=== PATIENT | male | born 1990 | race Caucasian/White ===

== ENCOUNTER → 2020-10-18 10:18 | Outpatient (CLI) | payer OTHER, SELFPAY ==
[2020-10-18 12:55] LABS: Absolute Lymphocyte Count 1.66 X10^3/uL (0.83-4.51); Absolute Neutrophil Count 2.9 X10^3/uL (2.0-7.7); Basophil# 0.03 X10^3/uL; Basophil% 0.6 % (0-1); Eosinophil# 0.09 X10^3/uL; Eosinophils% 1.8 % (0-5); Hematocrit 47.5 % (40-54); Hemoglobin 16.1 g/dL (13.0-16.5); Lymphocyte # 1.66 X10^3/ul (0.83-4.51); Lymphocyte % 32.8 % (19-41); Mean Corp Hgb Conc 33.9 g/dL (32-36); Mean Corpuscular Volume 88.6 fL (80-94); Monocyte# 0.35 X10^3/uL; Monocyte% 6.9 % (0-10); NRBC Flagged by Analyzer 0 % (0-5); Neutrophil # 2.91 X10^3/uL (2.7-7.7); Neutrophil % 57.5 % (47-70); Platelet Count 221 K/mm3 (150-450); Red Blood Count 5.36 M/mm3 (4.6-6.2); White Blood Count 5.1 K/mm3 (4.4-11.0)
[2020-10-18 13:02] LABS: Vitamin B12 297 pg/mL (211-911); Vitamin D,25 Hydroxy 20.7 ng/mL
[2020-10-18 13:16] LABS: ALB/GLOB Ratio 1.1 RATIO (0.9-2.4); AST(SGOT) 31 U/L (15-37); Alanine Aminotransfer ALT/SGPT 48 U/L (16-61); Albumin, Serum 4.2 g/dL (3.2-5.0); Alkaline Phosphatase 97 U/L (45-117); Anion Gap 3 (5-15); BUN 17 mg/dL (7-18); BUN/Creat Ratio 15.9 RATIO (10-20); Calcium,Total 9.3 mg/dL (8.5-10.1); Chloride 101 mmol/L (98-107); Cholesterol 220 mg/dL (200); Creatinine, Serum 1.07 mg/dL (0.70-1.30); EST Glomerular Filtration Rate 86 mL/min (>60); Est Glom Filt Rate - Afr Amer 104 mL/min (>60); Globulin 3.9 g/dL (2.2-4.2); Glucose 94 mg/dL (74-106); High Density Lipoprotein 35 mg/dL; Potassium 4.4 mmol/L (3.5-5.1); Protein, Total 8.1 g/dL (6.4-8.2); Sodium Level 135 mmol/L (136-145); T4 Free Direct 0.91 ng/dL (0.76-1.46); Thyroid Stim Hormone (TSH) 1.27 uIU/mL (0.358-3.74); Triglycerides 261 mg/dL; Very Low Density Lipoprotein 52 mg/dL (5-40)
== END ==
PROVIDERS: PCP Family Medicine; Referring Provider Family Medicine; Visit Provider Family Medicine
DX: R53.83 Other fatigue (principal); Z82.49 Family history of ischemic heart disease and other diseases of the circulatory system
CPT/HCPCS: 36415; 80053; 80061; 82306; 82607; 84439; 84443; 85025

== ENCOUNTER 2021-02-08 09:43 | Emergency (ER) | payer OTHER, SELFPAY ==
[2021-02-08 09:44] VITALS: BP 161/103; PULSE 72; RESP 18; TEMP 36.5; O2SAT 99; BMI 30.2
--- NOTE | 2021-02-08 10:00 | EKG12_ITS ---
Test Reason : Blood Pressure : / mmHG Vent. Rate : 076 BPM Atrial Rate : 076 BPM P-R Int : 140 ms QRS Dur : 102 ms QT Int : 380 ms P-R-T Axes : 022 080 046 degrees QTc Int : 427 ms Normal sinus rhythm Normal ECG Confirmed by ADELAIDE BAILEY, SHAYNA ([id number]), telegraph editor MIGEL MILLER ([id number]) on 02/13/2021 8:33:40 AM Referred By: Confirmed By:SHAYNA BRYSON MD
--- NOTE | 2021-02-08 10:00 | RAD_ITS ---
STUDY: X-RAY CHEST REASON FOR EXAM: Male, 30 years old. Chest pain and chest pressure. TECHNIQUE: Single AP portable view of the chest. COMPARISON: None. FINDINGS: EKG electrodes are seen. The lungs are clear and expanded. There is no demonstrated pleural abnormality. Normal size heart. Normal mediastinum and latoya. Normal visualized pulmonary arteries. Normal visualized aortic arch and descending thoracic aorta. Normal visualized thoracic spine. Normal visualized ribs, clavicles, and shoulders. There is no demonstrated abnormality of the visualized soft tissue structures of the upper abdomen. RAD/Chest 1 View (Portable) IMPRESSION: Normal x-ray examination of the chest. Electronically Signed: Dimitri Murcia MD at 10:38 EDT , Service support ,
--- NOTE | 2021-02-08 10:01 | EDS_ITS ---
HPI History of Present Illness Chief Complaint: Chest Pain Informant: patient Narrative Narrative: 30-year-old male presents the emergency room with chest tightness. Patient states that he is in the process of being evaluated for sleep apnea. He states that last night he tried to consciously breathe through his nose. This morning when he woke he felt a tightness in his chest. He states it makes him feel somewhat dyspneic. It was not going away when he was trying to go to work and it concerned him so he wanted to be evaluated. He notes his father has had extensive heart problems but after the age of 55. Patient is a non-smoker. He has no significant medical problems. PFSH PFSH no medical history Home Medications NK 02/08/21 [History Last Taken Unknown] Allergy/AdvReac Type Severity Reaction Status Date / Time No Known Allergies Allergy Verified 02/08/21 10:10 no surgical history Social History (Updated 02/08/21 @ 10:[address] Clay Snow, DO) Smoking Status: Never smoker substance use type: does not use ROS ROS ED Constitutional Constitutional ED: Denies chills or weight loss Eyes Eyes: Denies change in vision or diplopia ENT ENT ED: Denies ear pain, rhinorrhea or sore throat Cardiovascular Cardiovascular: Reports chest pain; Denies orthopnea, palpitations or racing heartbeat Respiratory/Chest Respiratory/Chest: Reports dyspnea; Denies cough or orthopnea Gastrointestinal Gastrointestinal: Denies abdominal pain, diarrhea, nausea or vomiting Genitourinary Genitourinary ED: Denies dysuria, hematuria or urinary frequency Musculoskeletal Musculoskeletal: Denies arthralgias or myalgias Integumentary Denies abscess or rash Neurologic Neurologic: Denies headache(s) or weakness Psychiatric Psychiatric: Denies anxiety, depression, suicidal ideation or suicidal thoughts Endocrine Endocrinology: Denies polydipsia, polyphagia or polyuria Allergic/Immunologic Allergic/Immunologic ED: Denies mouth swelling, tongue swelling or urticaria EXAM Physical Exam Const Vital Signs: 02/08/21 09:44 02/08/21 10:07 Temperature 97.7 F L Temperature Source Oral Pulse Rate 72 Respiratory Rate 18 Respiratory Effort Normal Non-Labored Respiratory Pattern Normal Blood Pressure 161/103 H Blood Pressure Mean 122 Pulse Ox 99 Oxygen Delivery Method Room Air Positive well nourished and well developed General Appearance ED: well developed HEENT Reports normocephalic, head/scalp atraumatic and moist mucous membranes Eyes PERRL and EOMs intact bilaterally Neck no lymphadenopathy, supple and no JVD Resp normal respiratory effort and clear to auscultation bilaterally Cardio regular rate, regular rhythm and no murmurs GI normal to inspection, nondistended, normoactive bowel sounds and non-tender Palpation: soft Back/Spine no CVA tenderness and normal ROM Extremity normal to inspection General Extremety ED: Negative for edema General Extremity: Negative for edema Neuro oriented x3 and CN's II-XII intact bilaterally Sensorium / Orientation: alert Motor Exam: strength 5/5 throughout Psych mental status grossly normal Mood & Affect: Negative for depressed or tearful Skin no rashes or lesions noted and no wounds Heart Score History: Slightly/Non-Suspicious ECG: Normal Age: </= 45 years Risk Factors: No Risk Factors Troponin: </= Normal Limit Score: 0 MDM MDM MDM Narrative Medical decision making narrative: My interpretation of the plain film of the chest x-ray is no acute process. Patient's white count 6.2. Troponin 29. D- dimer elevated 0.63. Therefore a CTA of the chest was obtained. This demonstrated no pulmonary embolism. Patient I believe can be discharged home. Following up with primary care return if worsening or concerns. Lab Data Attestation: I reviewed the patient's lab results. Labs: Laboratory Results - last 24 hr 02/08/21 02/08/21 02/08/21 09:50 09:50 10:09 WBC 6.2 RBC 5.34 Hgb 16.3 Hct 47.1 MCV 88.2 MCH 30.5 MCHC 34.6 RDW Std Deviation 39.6 RDW Coeff of Juliano 12.3 Plt Count 225 MPV 9.3 Immature Gran % (Auto) 0.500 Neut % (Auto) 63.6 Lymph % (Auto) 26.6 [place] % (Auto) 7.4 Eos % (Auto) 1.4 Baso % (Auto) 0.5 Absolute Neuts (auto) 4.0 Absolute Lymphs (auto) 1.66 Nucleated RBC % 0 D-Dimer Quant (PE/DVT) 0.63 H* Sodium 139 Potassium 4.2 Chloride 103 Carbon Dioxide 31.0 Anion Gap 5 BUN 14 Creatinine 1.12 Estim Creat Clear Calc 118.40 Est GFR (MDRD) Af Amer 99 Est GFR (MDRD) Non-Af 82 BUN/Creatinine Ratio 12.5 Glucose 104 Calcium 9.1 Troponin I High Sens 29 Radiography Diagnostic Testing: Radiology Impression Chest X-Ray 02/08/21 10:00 IMPRESSION: Normal x-ray examination of the chest. Electronically Signed: Dimitri Murcia MD at 10:38 EDT , Service support , Chest CTA 02/08/21 10:45 IMPRESSION: Normal CTA chest examination, without a demonstrated pulmonary embolism or arterial dissection. Electronically Signed: Dimitri Murcia MD at 11:24 EDT , Service support , EKG Initial EKG: Attestation: I personally reviewed and interpreted this EKG as follows: Comments: Normal sinus rhythm at a rate of 76 bpm. No concerning features of ACS or ectopy noted. Discharge Plan Triage Chief Complaint: Chest Pain ED Provider: Clay Snow Dx/Rx/DC Orders Clinical Impression: Chest pain Instructions: ED Chest Pain, Noncardiac Prescriptions: No Action NK RF: 0 Primary Care Provider: Urbano Oswald Referrals: Urbano Oswald MD [Primary Care Provider] - 1 Week Disposition Disposition: Home, Self Care
[2021-02-08 10:23] LABS: Absolute Lymphocyte Count 1.66 X10^3/uL (0.83-4.51); Basophil# 0.03 X10^3/uL; Basophil% 0.5 % (0-1); Eosinophil# 0.09 X10^3/uL; Eosinophils% 1.4 % (0-5); Hematocrit 47.1 % (40-54); Hemoglobin 16.3 g/dL (13.0-16.5); Lymphocyte # 1.66 X10^3/ul (0.83-4.51); Lymphocyte % 26.6 % (19-41); Mean Corp Hgb Conc 34.6 g/dL (32-36); Mean Corpuscular Hgb 30.5 pg (27.0-32.0); Mean Corpuscular Volume 88.2 fL (80-94); Mean Platelet Vol. 9.3 fl (6.2-12.0); Monocyte# 0.46 X10^3/uL; Monocyte% 7.4 % (0-10); NRBC Flagged by Analyzer 0 % (0-5); Neutrophil # 3.96 X10^3/uL (2.7-7.7); Neutrophil % 63.6 % (47-70); Platelet Count 225 K/mm3 (150-450); RBC Distribution Width CV 12.3 % (11.6-14.6); RBC Distribution Width SD 39.6 fl (35.1-43.9); Red Blood Count 5.34 M/mm3 (4.6-6.2); White Blood Count 6.2 K/mm3 (4.4-11.0)
[2021-02-08 10:38] LABS: D-Dimer Quantitative (DVT/PE) 0.63 FEU/ug/m (0.27-0.49)
[2021-02-08 10:41] LABS: Anion Gap 5 (5-15); BUN 14 mg/dL (7-18); BUN/Creat Ratio 12.5 RATIO (10-20); Calcium,Total 9.1 mg/dL (8.5-10.1); Chloride 103 mmol/L (98-107); Creatinine, Serum 1.12 mg/dL (0.70-1.30); EST Glomerular Filtration Rate 82 mL/min (>60); Est Glom Filt Rate - Afr Amer 99 mL/min (>60); Glucose 104 mg/dL (74-106); Potassium 4.2 mmol/L (3.5-5.1); Sodium Level 139 mmol/L (136-145); Troponin-I HS 29 pg/mL (3.0-78.0)
--- NOTE | 2021-02-08 10:45 | CT_ITS ---
STUDY: CTA CHEST REASON FOR EXAM: Male, 30 years old. Pulmonary embolism. Chest tightness. Shortness of breath and elevated d-dimer. RADIATION DOSAGE (If Supplied By Facility): CTDIvol = ( 14.01 ) mGy, DLP = ( 529.13 ) mGycm TECHNIQUE: The examination was performed with the intravenous administration of IV 100mL Isovue-370. Post-processing of the angiographic images was performed, with multiplanar reformation and 3D reconstruction. Individualized dose optimization techniques were used for this CT. COMPARISON: None. FINDINGS: Normal enhancement of the main pulmonary artery and right and left pulmonary arteries. Normal enhancement of the bilateral peripheral pulmonary arteries. There is no demonstrated pulmonary embolism. Normal thoracic aorta and visualized great vessels. There is no demonstrated aortic dissection. Normal heart and pericardium. Normal mediastinum. Normal hilar regions. Normal visualized trachea and bronchi. The lungs are well expanded. Normal pulmonary parenchyma. Normal pleura. Normal chest wall structures. Normal osseous structures. Normal visualized upper abdomen. CT/CTA Chest W/WO Contrast IMPRESSION: Normal CTA chest examination, without a demonstrated pulmonary embolism or arterial dissection. Electronically Signed: Dimitri Murcia MD at 11:24 EDT , Service support ,
[2021-02-08 11:55] VITALS: BP 139/92; PULSE 67; RESP 16; O2SAT 97
== END 2021-02-08 11:56 | disposition home or self-care (01) ==
LOC: ED 11:50
PROVIDERS: Emergency Provider Emergency Medicine; PCP Family Medicine
DX: R07.89 Other chest pain (principal); R06.00 Dyspnea, unspecified
CPT/HCPCS: 71045; 71275; 80048; 84484; 85025; 85379; 93005; 99284; A4216

== ENCOUNTER → 2021-05-09 15:35 | Outpatient (CLI) | payer OTHER, SELFPAY ==
[2021-05-09 17:52] LABS: Amphetamine Urine VISTA NEGATIVE (<1000 ng/mL); Barbiturate Urine VISTA NEGATIVE (< 200 ng/mL); Benzodiazepine Urine VISTA NEGATIVE (< 200 ng/mL); Cocaine Urine VISTA NEGATIVE (< 300 ng/mL); Ecstacy Urine VISTA NEGATIVE (< 500 ng/mL); Methadone Urine VISTA NEGATIVE (< 300 ng/mL); PCP Urine VISTA NEGATIVE (< 25 ng/mL); THC Urine VISTA NEGATIVE (< 50 ng/mL); Vista UDS pH Range 6
== END ==
PROVIDERS: PCP Family Medicine; Referring Provider Internal Medicine Pulmonary Disease; Visit Provider Internal Medicine Pulmonary Disease
DX: G47.10 Hypersomnia, unspecified (principal)
CPT/HCPCS: 80307

== ENCOUNTER → 2022-09-18 | Outpatient (CLI) | payer BC, SELFPAY ==
--- NOTE | 2022-09-18 09:06 | RAD_ITS ---
STUDY: X-RAY - LEFT ANKLE REASON FOR EXAM: Male, 32 years old. Pain TECHNIQUE: 3 view(s) of the ankle. COMPARISON: March 20, 2017 left ankle x-ray FINDINGS: Normal visualized distal tibia .Normal medial .Normal tibiotalar articulation and ankle mortise. Normal visualized talus and calcaneus. The visualized subtalar, talonavicular, calcaneocuboid and tarsal articulations are normal. There is visualized degenerative change at the level of the talonavicular joint. Stable since prior study. There is a persistent bulbous appearance of the lateral malleolus with underlying stable appearing bony erosion measuring up to 7.6 mm. There is a soft tissue mass measuring approximately 3.3 x 1.7 cm. RAD/Ankle min 3 Views IMPRESSION: Relatively stable bulbous appearance of the lateral malleolus that is highly suggestive of probable underlying lateral malleolus bursitis with bony changes. Consider follow-up studies such as MRI if clinically appropriate. There is no visualized fracture. Electronically Signed: Breonna Villatoro MD at 22:39 EDT ,
== END | disposition home or self-care (01) ==
LOC: MTRAD 09:06
PROVIDERS: PCP Family Medicine; Referring Provider Family Medicine; Visit Provider Family Medicine
DX: M25.579 Pain in unspecified ankle and joints of unspecified foot (principal)
CPT/HCPCS: 73610

== ENCOUNTER → 2022-10-10 | Outpatient (CLI) | payer BC, SELFPAY ==
--- NOTE | 2022-10-10 09:15 | MRI_ITS ---
STUDY: MRI LEFT ANKLE WITHOUT CONTRAST REASON FOR EXAM: Male, 32 years old. Lateral left ankle pain. No injury. TECHNIQUE: Standardized fat and water weighted pulse sequences were obtained in all 3 orthogonal planes. COMPARISON: X-rays of left ankle dated September 18, 2022. FINDINGS: Septated ganglion cyst adjacent to the fibular tip measuring 19 mm x 8 mm x 19 mm (axial series 4 images 13-19, coronal series 8 images 19-27, sagittal series 7 images 21-26). Normal posterior tibialis tendon. Normal flexor digitorum longus tendon. Normal flexor hallucis longus tendon. Normal peroneus longus and brevis tendons. Normal tibialis anterior tendon. Normal extensor hallucis longus tendon. Normal extensor digitorum longus tendons. Normal Achilles tendon and teno-osseous insertion. Normal plantar fascia. Normal plantar calcaneal tubercles. Normal intrinsic muscles of the rearfoot. Normal distal tibiofibular syndesmotic ligamentous complex. Normal lateral ligamentous complex. Normal subtalar ligaments and sinus tarsi. Normal deltoid ligamentous complexes. Normal plantar calcaneonavicular (spring) ligament. Bone marrow edema in the distal fibula (coronal series 8 images 20-25). Normal tibiotalar articulation. Normal talar dome. Normal subtalar articulations. Normal talonavicular articulation. Normal calcaneocuboid articulation. Normal navicular-cuneiform articulations. MRI/Lower Ext Joint Only (Routine) IMPRESSION: Bone marrow edema in the distal fibula with an adjacent septated ganglion cyst as described. No other abnormality. Electronically Signed: Gerber Rodriguez, at 13:55 EDT ,
== END | disposition home or self-care (01) ==
LOC: MRI 09:02
PROVIDERS: PCP Family Medicine; Referring Provider Family Medicine; Visit Provider Family Medicine
DX: M25.579 Pain in unspecified ankle and joints of unspecified foot (principal)
CPT/HCPCS: 73721

== ENCOUNTER → 2022-10-15 | Outpatient (CLI) | payer BC, SELFPAY ==
[2022-10-15 11:10] LABS: CRYSTALS, BODY FLUID MONOSODIUM URATE; Source- Body Fluid SYNOVIAL
[2022-10-15 11:11] LABS: Body Fluid QC Type(s) BF1Q
[2022-10-16 12:48] LABS: Pathologist Review Reviewed
== END | disposition home or self-care (01) ==
LOC: LABSPEC 10:05
PROVIDERS: PCP Family Medicine; Referring Provider Family Medicine; Visit Provider Family Medicine
DX: M77.50 Other enthesopathy of unspecified foot and ankle (principal)
CPT/HCPCS: 89060

== ENCOUNTER → 2022-11-29 | Outpatient (CLI) | payer BC, SELFPAY ==
[2022-11-29 18:11] LABS: Uric Acid 7.1 mg/dL (3.5-7.2)
== END | disposition home or self-care (01) ==
LOC: MTLAB 14:50
PROVIDERS: PCP Family Medicine; Referring Provider Family Medicine; Visit Provider Family Medicine
DX: M77.50 Other enthesopathy of unspecified foot and ankle (principal); M10.9 Gout, unspecified
CPT/HCPCS: 36415; 84550

== ENCOUNTER → 2023-03-29 | Outpatient (CLI) | payer BC, SELFPAY ==
--- NOTE | 2023-03-29 08:58 | RAD_ITS ---
STUDY: X-RAY - LUMBAR SPINE REASON FOR EXAM: Male, 32 years old. BACK PAIN TECHNIQUE: XR Spine Lumbar 4 Views COMPARISON: None FINDINGS: Normal lumbar lordosis. There is no substantial scoliosis. There is a normal alignment of the vertebrae. Normal vertebral bodies and endplates. Normal disc space heights. The soft tissue structures are unremarkable. RAD/L/S Spine Min 4 Views IMPRESSION: There are no acute findings. Electronically Signed: Ramin Faust MD at 14:36 EDT ,
== END | disposition home or self-care (01) ==
LOC: MTRAD 08:52
PROVIDERS: PCP Family Medicine; Referring Provider Family Medicine; Visit Provider Family Medicine
DX: M54.16 Radiculopathy, lumbar region (principal)
CPT/HCPCS: 72110

== ENCOUNTER 2023-04-17 12:00 | Outpatient (RCR) | payer BC, SELFPAY ==
--- NOTE | 2023-03-26 14:15 | HP.PTEVAL_ITS ---
Patient's Visit Information Visit Information Visit Information: ANGELIQUE SWANN is a 32 year old M referred to Physical Therapy by Dr. Vadim Vaca MD with a diagnosis of lumbago with sciatica, pelvic rotation, tight hip flexor.. Date of Evaluation: 03/26/23 Physical Therapist: Dustin Guillen DPT Visit Plan Frequency: 2x /Week Duration: 4 Weeks Plan: Pt. did not have a + response to extension mobility, he did have a better response with flexion this date. I would like him to initially work on flexion to calm his symptoms down, but eventually work into extension to reduce his derangement. I gave him SKTC and DKTC, and use of towel roll with sitting for HEP. Next visit reassess tolerance extension mobility. If extension provided better response progress with extension at this point. I added mobilizations and soft tissue to interventions in case he needed over pressures to get relief with extension and/or manual therapy to reduced subsequent muscle guarding. Subjective Subjective: Pt. is here today for his initial evaluation with diagnosis of lumbago with sciatica, pelvic rotation, tight hip flexor. Pt. reports having pain for ~1 month now. He has done prednisone and muscle relaxers, with some relief, but not fully. Pt. reports no mech of injury, but seems to have come on abruptly. Pt. reports pain that does down his R leg to calf pretty consistently. Mornings and evening are worst, middle of the day seems to be better. Pt. has been trying some stretches without much relief. He has been working on rotation and HS stretching. 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 He also likes to play basketball but has been unable to do so. He has 2 young kinds under the age of 3 and has difficulty picking them up. Pt. is looking to get approval for MRI as well at this point in time. Pain Lumbar spine: Pain Intensity (Out of 10): 4 Pain Intensity Range: 2 and 8 RLE: Pain Intensity (Out of 10): 4 Pain Intensity Range: 2 and 8 Objective Objective: POSTURE: Pt. has slight flexed posture. Pt. has slight anterior pelvic tilt. PALPATION: Pt. has some hypomobility throughout lumbar spine, hypomobility with spring testing. Pt. did not have any radicular symptoms with trials. NEURO: Pt. has normal sensation in BLEs and normal DTR in BLEs. ROM: LUMBAR SPINE: flexion min loss increase nW, ext mod loss increase NW, SB R nil loss NE, SB left min loss increase NW, rotation nil loss bilat NE. HIP: normal hip ROM bilat without increase in symptoms. He does have some slight tightness in B HS and more tightness in B hip flexor tendons, but symmetrical. MMT: 5/5 strength throughout BLEs. No marked myotomal weakness noted in BLEs. Pt. has a slight reduction in trunk flexion and trunk extension, but minimal. GAIT: Pt. has reduced B arm swing with gait, rigid upper body mobility with gait. STAIRS: fairly normal. Special Tests L/S Slump test left side: Negative L/S Slump test right side: Positive L/S Left Straight Leg Raise: Negative L/S Right Straight Leg Raise: Positive Lumbar Standing: Flexion - Mechanical Response: No effect Lumbar Standing: Flexion - Symptoms During Testing: Increases Lumbar Standing: Flexion - Symptoms After Testing: No worse Lumbar Standing: Extension - Mechanical Response: No effect Lumbar Standing: Extension - Symptoms During Testing: Abolishes Lumbar Standing: Extension - Symptoms After Testing: No worse Lumbar Standing: Right Side Glides - Mechanical Response: No effect Lumbar Standing: Right Side [place] - Symptoms During Testing: No effect Lumbar Standing: Right Side [place] - Symptoms After Testing: No effect Lumbar Standing: Left Side [place] - Mechanical Response: No effect Lumbar Standing: Left Side [place] - Symptoms During Testing: No effect Lumbar Standing: Left Side [place] - Symptoms After Testing: No effect Lumbar Lying: Flexion - Mechanical Response: No effect Lumbar Lying: Flexion - Symptoms During Testing: Decreases Lumbar Lying: Flexion - Symptoms After Testing: Better Comments:: slightly, less calf and HS pain Lumbar Lying: Extension - Mechanical Response: No effect Balance/Special Test Scores Oswestry Low Back Score: 20 Goals Goal 1:: LTG: Pt. to have full lumbar ROM without increase in any lumbar or radicular symptoms. Goal Time Frame: 4-6 Weeks Goal 2:: LTG: Pt. to be able to get in/out of car and drive for 30+ minutes without increase in RLE pain. Goal Time Frame: 4-6 Weeks Goal 3:: LTG: Pt. to have negative R sided slump testing. Goal Time Frame: 4-6 Weeks Goal 4:: LTG: Pt. to be able to play basketball without increase in symptoms. Goal Time Frame: 4-6 Weeks Goal 5:: LTG: Pt. to have improved back oswestry score to less than 10% disability. Goal Time Frame: 4-6 Weeks Rehabilitation Potential Physical Therapy Diagnosis: Pt. has signs and symptoms consistent with lumbago with sciatica, pelvic rotation, tight hip flexor. Pt. would benefit from PT to reduce his low back pain. Pt. presents with discogenic involvement of his lumbar spine, resulting in distal RLE pain. Pt. would benefit from PT to reduce nerve involvement progressing his lumbar ROM, restoring his tolerance to all ADLs and work/recreational activities. Rehabilitation Potential: Excellent Anticipated Interventions Patient/Client Instruction: Educate patient on: Condition, Plan of Care, Risk Factors and Benefits of Fitness Program For the Purpose of:: To facilitate caregiver knowledge, To improve self management, To prevent re-injury, To improve ability to perform tasks related to life management and To improve tolerance to ADL's Therapeutic Exercise to Include: Strength training, Power training, Postural training, Flexibilty training, Passive ROM, Active ROM and Dynamic Lumbar Stabilization For the Purpose of:: To decrease pain, To increase ROM, To improve nutrient delivery to tissue, To increase oxygenation perfusion, To improve ability to per form ADL's, To improve health of tissue, To decrease soft tissue restriction and To increase flexibility/ROM Manual Therapy Techniques to Include: Mobilization and Soft tissue mobilization For the Purpose of:: To decrease pain, To decrease swelling/inflammation, To increase ROM, To improve nutrient delivery to tissue and To increase oxygenation perfusion Text: Thank you for the opportunity to evaluate your patient. For Medicare and Medicare HMO plans, please review the plan of care and approve it. It will need to be FAXED BACK to us at [phone] for Medicare purposes. For Medicare only, by signing this I certify the plan of care. Please let me know if there are questions or concerns regarding this plan of care. Physician Signature: Date:
--- NOTE | 2023-10-01 09:52 | HP.PTDCSUM ---
Discharge Summary D/C summary: It has been my pleasure to treat ANGELIQUE SWANN referred by Dr. Ruddy Vaca MD, with the diagnosis of lumbago with sciatica, pelvic rotation, tight hip flexor. for a total of 4 visit(s). Discharge Date: 04/17/23 Please see the following information for a summary of their discharge status. Subjective Subjective: Pt. reports not much change with PT. Pain Lumbar spine: Pain Intensity (Out of 10): 3 RLE: Pain Intensity (Out of 10): 3 Overall Improvement % Improvement: 15 Objective Objective/Function: ROM: LUMABR SPINE: flexion mod loss increase NW, ext mod loss increase NW, SB min loss NE bilat, rotation min loss NE bilat. PT. has normal HS length and close to normal hip flexor length. MMT: Pt. has normal strength throughout BLEs distally, fairly normal strength with hip flexors slight decrease to 4+/5 mild increase NW bilat. At this point in time he has not had much relief with extension exercises. I would recommend following back up with physician. Pt. consents. Goals Goal 1:: LTG: Pt. to have full lumbar ROM without increase in any lumbar or radicular symptoms. Goal Progress: Not Progressing Goal 2:: LTG: Pt. to be able to get in/out of car and drive for 30+ minutes without increase in RLE pain. Goal Progress: Progressing Goal 3:: LTG: Pt. to have negative R sided slump testing. Goal Progress: Not Progressing Goal 4:: LTG: Pt. to be able to play basketball without increase in symptoms. Goal Progress: Not Progressing Goal 5:: LTG: Pt. to have improved back oswestry score to less than 10% disability. Goal Progress: Progressing Plan Plan: Pt. to be DC ant follow back up with physician. D/C Information Discharge Comments: Pt. was seen in PT for his LBP. Pt. started with extension progression, but did not progress as expected. We tried LE stretching and nerve glides, but did not have a good directional preference. Pt. will be referred back to physician at this point in time. d/c sentence: If there are questions or concerns regarding this patient's physical therapy, please feel free to call me at [phone]. Thank you for the referral of this patient. Sincerely, Dustin L Sipos, DPT Balance/Gait/Functional tests Balance/Special Test Scores Oswestry Low Back Score: 18 Improvement % Improvement: 15
== END 2023-04-17 19:00 | disposition home or self-care (01) ==
LOC: PT 12:00
PROVIDERS: PCP Family Medicine; Referring Provider Family Medicine; Visit Provider Family Medicine
DX: M54.40 Lumbago with sciatica, unspecified side (principal)
CPT/HCPCS: 97110; 97161

== ENCOUNTER → 2023-04-29 | Outpatient (CLI) | payer BC, SELFPAY ==
--- NOTE | 2023-04-29 14:45 | MRI_ITS ---
STUDY: MRI LUMBAR SPINE WITHOUT CONTRAST REASON FOR EXAM: Male, 32 years old. pain TECHNIQUE: Standardized fat and water weighted pulse sequences were obtained in the sagittal and axial planes. COMPARISON: None FINDINGS: T12-L1: Normal endplates. Normal disc height, hydration and morphology. Normal bilateral facet joints. Normal central canal and bilateral lateral recesses. Normal bilateral intervertebral neural foramina. Normal lumbar lordosis. There is no substantial scoliosis. Normal conus medullaris that terminates at T12-L1 L1-2: Normal endplates. Normal disc height, hydration and morphology. Normal bilateral facet joints. Normal central canal and bilateral lateral recesses. Normal bilateral intervertebral neural foramina. L2-3: Normal endplates. Normal disc height, hydration and morphology. Normal bilateral facet joints. Normal central canal and bilateral lateral recesses. Normal bilateral intervertebral neural foramina. L3-4: Normal endplates. Normal disc height, hydration and morphology. Normal bilateral facet joints. Normal central canal and bilateral lateral recesses. Normal bilateral intervertebral neural foramina. L4-5: Normal endplates. Normal disc height, hydration and minor annular bulge. Facet arthropathy and thickening of ligamenta flava.. Normal central canal and bilateral lateral recesses. Moderate bilateral neural foraminal stenosis. L5-S1: Normal endplates. Normal disc height, desiccation mild annular bulge with broad-based right paracentral/posterolateral disc protrusion displacing the descending right S1 nerve root.. Normal facet arthropathy. Mild narrowing of the central canal. Normal bilateral lateral recesses. Moderate bilateral neural foraminal stenosis slightly worse on the right Normal visualized sacral ala. Normal visualized paraspinous soft tissue structures. MRI/Spine Lumbar (Routine) IMPRESSION: No evidence for acute fracture or other significant bony pathology Spinal stenosis at L4-5 and L5-S1 more severe on the right secondary to disc disease and bony hypertrophy Electronically Signed: Fahad Hooker MD at 18:48 EST ,
== END | disposition home or self-care (01) ==
LOC: MRI 14:16
PROVIDERS: PCP Family Medicine; Referring Provider Orthopaedic Surgery; Visit Provider Orthopaedic Surgery
DX: M51.26 Other intervertebral disc displacement, lumbar region (principal)
CPT/HCPCS: 72148

== ENCOUNTER 2024-02-10 09:30 | Outpatient (RCR) | payer BC, SELFPAY ==
--- NOTE | 2023-11-27 10:30 | HP.PTEVAL_ITS ---
Patient's Visit Information Visit Information Visit Information: ANGELIQUE SWANN is a 33 year old M referred to Physical Therapy by Dr. Robbie Macedo MD with a diagnosis of LUMBAR RADICULOPATHY. Date of Evaluation: 11/27/23 Physical Therapist: Bubba Mchugh, PT, Cert MDT, OCS Visit Plan Frequency: 2x /Week Duration: 4 Weeks Plan: PT INTERVENTIONS JOEY EX'S WITH PROGRESSION OF FORCES, MANUAL THERAPY ,PROGRESSION TO DLS AND POSTURAL EX'S Subjective Subjective: This 33 y/o male presents to physical therapy with lumbar lumbar radiculopathy. Patient has had lumbar radiculopathy right leg last Feb 2023. Patient seen DR Vaca recommended PT . Patient was not getting better with PT. Patient pain worse thus had MRI showed HNP L5-S1 . Patient seen DR Macedo tried epidural injection. Seen pain management but referred PT . Patient located calf and hamstrings less lumbar pain. Today mild in calf . Normal activity less pain. Aggravating standing ,bending ,lifting ,sitting. Alleviating lyrica , extension. Denies paresthesia/tingling in foot better, Coughing/sneezing -.Sleeping good. No abnormal night pain. Bowel/bladder -. Patient pain affects QOL and function unable to return to golfing/basketball. Patient goals to have no pain. 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 Right Lower Extremity: Pain Intensity (Out of 10): 4 Pain Intensity Range: 10 Right Back: Pain Intensity (Out of 10): 3 Pain Intensity Range: 10 Objective Objective: POSTURE: WFL ,sitting reduce lordosis PALAPTION: unremarkable NEURO: denies paresthesia/tingling ,reflexes L3-4,L4-5,L5-S1 2/3 MMT: quads/hams 4/5 ,hip flexion 4/5 , ankl3 5/5 FLEXABILITY: min hamstrings LUMBAR ROM : flexion WFL , extension min ,side glides min loss Special Tests L/S Slump test left side: Negative L/S Slump test right side: Negative L/S Left Straight Leg Raise: Negative L/S Right Straight Leg Raise: Negative Lumbar Standing: Flexion - Mechanical Response: No effect Lumbar Standing: Flexion - Symptoms During Testing: Increases Lumbar Standing: Flexion - Symptoms After Testing: Worse Comments:: calf Lumbar Standing: Extension - Mechanical Response: No effect Lumbar Standing: Extension - Symptoms During Testing: Decreases Lumbar Standing: Extension - Symptoms After Testing: Better Comments:: calf Lumbar Standing: Right Side Glides - Mechanical Response: No effect Lumbar Standing: Right Side [place] - Symptoms During Testing: No effect Lumbar Standing: Right Side [place] - Symptoms After Testing: No effect Lumbar Standing: Left Side [place] - Mechanical Response: No effect Lumbar Standing: Left Side [place] - Symptoms During Testing: No effect Lumbar Lying: Flexion - Mechanical Response: No effect Lumbar Lying: Flexion - Symptoms During Testing: Decreases Lumbar Lying: Flexion - Symptoms After Testing: Worse Comments:: calf Lumbar Lying: Extension - Mechanical Response: No effect Lumbar Lying: Extension - Symptoms During Testing: Abolishes Lumbar Lying: Extension - Symptoms After Testing: Better Comments:: calf ,increase in lumbar right NB Balance/Special Test Scores Oswestry Low Back Score: 15 Goals Goal 1:: Patient to be I with HEP for back Goal Time Frame: 4-6 Weeks Goal 2:: Patient to demonstrate 75% improvement with less pain and improve function Goal Time Frame: 4-6 Weeks Goal 3:: Patient to improve lumbar ROM for function of recovery to lift Goal Time Frame: 4-6 Weeks Goal 4:: Patient to improve back oswestry score by 5 points to function and QOL Goal Time Frame: 4-6 Weeks Goal 5:: Patient to improve ability to return golfing/basketball with min limiations Goal Time Frame: 4-6 Weeks Rehabilitation Potential Physical Therapy Diagnosis: This patient has lumbar radiculopathy with disc derangement below knee with pain worse with motion testing flexion and positioning and better with extension and correction of posture thus benefit from skilled PT Rehabilitation Potential: Good Anticipated Interventions Patient/Client Instruction: Educate patient on: Condition and Plan of Care For the Purpose of:: To decrease pain, To increase ROM, To improve muscle performance and motor function, To improve ability to perform ADL's, To increase tolerance to activity/condition/position, To improve ability of physical actions for home/community/work/leisure, To improve health of tissue, To decrease soft tissue restriction, To increase flexibility/ROM and To prevent re-injury Therapeutic Exercise to Include: Strength training, Body mechanics, Postural training, Flexibilty training, Dynamic Lumbar Stabilization and Joey Exercises For the Purpose of:: To decrease pain, To increase ROM, To improve ability to perform ADL's, To increase tolerance to activity/condition/position, To improve ability of physical actions for home/community/work/leisure, To improve health of tissue, To decrease soft tissue restriction, To increase flexibility/ROM, To prevent re-injury and Other Other: GOLFING/BASKETBALL Manual Therapy Techniques to Include: Mobilization Comment: LUMBAR For the Purpose of:: To decrease pain, To increase ROM, To improve health of tissue, To decrease soft tissue restriction and To increase flexibility/ROM Text: Thank you for the opportunity to evaluate your patient. For Medicare and Medicare HMO plans, please review the plan of care and approve it. It will need to be FAXED BACK to us at [phone] for Medicare purposes. For Medicare only, by signing this I certify the plan of care. Please let me know if there are questions or concerns regarding this plan of care. Physician Signature: Date:
--- NOTE | 2024-02-19 09:46 | HP.PTDCSUM ---
Discharge Summary D/C summary: It has been my pleasure to treat ANGELIQUE SWANN referred by Dr. Robbie Macedo MD, with the diagnosis of LUMBAR RADICULOPATHY for a total of 8 visit(s). Discharge Date: 02/19/24 Please see the following information for a summary of their discharge status. Subjective Subjective: Patient takes lyrica See pain ,management next Intermittent symptoms Significantly improved since last fall Pain Right Lower Extremity: Pain Intensity (Out of 10): 4 Right Back: Pain Intensity (Out of 10): 4 Overall Improvement % Improvement: 75 Objective Objective/Function: REIL WITH PROGRESSION OF FORCES REDUCTION OF SYMPTOMS POSTURE: WFL ,sitting reduce lordosis PALAPTION: unremarkable NEURO: denies paresthesia/tingling ,reflexes L3-4,L4-5,L5-S1 2/3 MMT: quads/hams 4/5 ,hip flexion 4/5 , ankl3 5/5 FLEXABILITY: min hamstrings LUMBAR ROM : flexion WFL , extension min ,side glides min loss Goals Goal 1:: Patient to be I with HEP for back Goal Progress: Goal Met Goal 2:: Patient to demonstrate 75% improvement with less pain and improve function Goal Progress: Goal Met Goal 3:: Patient to improve lumbar ROM for function of recovery to lift Goal Progress: Goal Met Goal 4:: Patient to improve back oswestry score by 5 points to function and QOL Goal Progress: Goal Met Goal 5:: Patient to improve ability to return golfing/basketball with min limiations Goal Progress: Goal Met Plan Plan: D/C TO HEP D/C Information Discharge Comments: HEP d/c sentence: If there are questions or concerns regarding this patient's physical therapy, please feel free to call me at [phone]. Thank you for the referral of this patient. Sincerely, Bubba Mchugh, PT, Cert MDT, OCS Balance/Gait/Functional tests Balance/Special Test Scores Oswestry Low Back Score: 11 Improvement % Improvement: 75
== END 2024-02-10 19:00 | disposition home or self-care (01) ==
LOC: PT 09:30
PROVIDERS: PCP Family Medicine; Referring Provider Anesthesiology; Visit Provider Anesthesiology
DX: M54.16 Radiculopathy, lumbar region (principal)
CPT/HCPCS: 97110; 97162

== ENCOUNTER 2024-03-11 23:40 | Emergency (ER) | payer BC, SELFPAY ==
[2024-03-11 23:41] VITALS: BP 143/83; PULSE 109; RESP 18; TEMP 36.4; O2SAT 96
[2024-03-11 23:46] VITALS: BMI 26.7
--- NOTE | 2024-03-11 23:57 | RAD_ITS ---
EXAM: XR RIGHT ANKLE COMPLETE, 3 OR MORE VIEWS CLINICAL INDICATION: INJURY TECHNIQUE: Frontal, lateral and oblique views of the right ankle. COMPARISON: No relevant prior studies available. FINDINGS: BONES/JOINTS: There are some small bony fragments adjacent to the dorsal surface of the talus anterior to the tibiotalar joint that are likely chronic but I cannot completely exclude small evulsion fragments. No subluxation. Normal alignment. No sclerotic or destructive changes observed. SOFT TISSUES: Marked soft tissue swelling laterally consistent with sprain. No radiopaque foreign body. RAD/Ankle min 3 Views IMPRESSION: 1. Marked soft tissue swelling laterally consistent with sprain. No fracture identified. 2. There are some small bony fragments adjacent to the dorsal surface of the talus anterior to the tibiotalar joint that are likely chronic but I cannot completely exclude small evulsion fragments. Electronically Signed: Brooks Roman MD at 0:49 EDT ,
--- NOTE | 2024-03-11 23:57 | ED.VIS.LOWEX ---
HPI History of Present Illness Chief Complaint: Lower Extremity Injury Informant: patient and spouse/S.O. Narrative Narrative: Very pleasant 33-year-old male presenting to the emergency room with a chief complaint of ankle injury. Patient was playing basketball this evening when he came down from a jump and sustained an inversion injury. He has video of the injury occurring. Notes he attempts to bear weight and is extremely painful. He notes swelling seem to get worse. He states initially he did not see any blood on his sock or shoe or any break in the skin. As the swelling worsened he developed a small scab on the lateral aspect of the ankle. He denies any other injuries. Patient took Tylenol at home. [facility] Medical History History of broken nose Home Medications ?Medication ?Instructions ?Recorded ?Last Taken ?Type acetaminophen 325 mg tablet 325 mg PO ONCE PRN 04/08/23 Unknown History (Tylenol) modafinil 200 mg tablet mg PO 04/08/23 Unknown History naproxen sodium 220 mg tablet 220 mg PO BID PRN 04/08/23 Unknown History (Aleve) sodium, calcium, magnesium, 1.8 g PO BID 04/08/23 Unknown History potassium oxybates 0.5 gram/mL oral soln (Xywav) pregabalin 50 mg capsule 50 mg PO BID 05/02/23 Unknown History Allergy/AdvReac Type Severity Reaction Status Date / Time No Known Allergies Allergy Verified 03/11/24 23:41 Social History Smoking Status: Never smoker alcohol intake: current alcohol intake frequency: a few times a month Alcohol type: beer substance use type: does not use ROS ROS ED Constitutional Constitutional ED: Denies chills, fever(s) or weight loss Eyes Eyes: Denies change in vision or diplopia ENT ENT ED: Denies ear pain, rhinorrhea or sore throat Cardiovascular Cardiovascular: Denies chest pain, orthopnea, palpitations or racing heartbeat Respiratory/Chest Respiratory/Chest: Denies cough, dyspnea or orthopnea Gastrointestinal Gastrointestinal: Denies abdominal pain, diarrhea, nausea or vomiting Genitourinary Genitourinary ED: Denies dysuria, hematuria or urinary frequency Musculoskeletal Musculoskeletal: Reports other Details: See history of present illness ; Denies arthralgias or myalgias Integumentary Denies abscess or rash Neurologic Neurologic: Denies headache(s) or weakness Psychiatric Psychiatric: Denies anxiety, depression, suicidal ideation or suicidal thoughts Endocrine Endocrinology: Denies polydipsia, polyphagia or polyuria Allergic/Immunologic Allergic/Immunologic ED: Denies mouth swelling, tongue swelling or urticaria EXAM Physical Exam Const Vital Signs: 03/11/24 23:41 Temperature 97.6 F L Temperature Source Temporal Pulse Rate 109 H Respiratory Rate 18 Blood Pressure 143/83 H Blood Pressure Mean 103 Pulse Ox 96 Oxygen Delivery Method Room Air Positive well nourished and well developed General Appearance ED: well developed and NAD HEENT Reports normocephalic, head/scalp atraumatic and moist mucous membranes Eyes PERRL and EOMs intact bilaterally Neck full ROM, no lymphadenopathy, supple and no JVD Resp normal respiratory effort and clear to auscultation bilaterally Cardio regular rate, regular rhythm and no murmurs GI normal to inspection, nondistended, normoactive bowel sounds and non-tender Palpation: soft Back/Spine no CVA tenderness and normal ROM Extremity Extremity Narrative: There is swelling of the medial and lateral malleolus. The Achilles palpates and functionally appears intact. There is a small bloody scab over the lateral aspect of the ankle. There is no medical tarsal tenderness. There is no fibular head tenderness. The tibial shaft palpates normal. He is neurovascular intact distal. General Extremety ED: Negative for edema General Extremity: Negative for edema Neuro oriented x3 and CN's II-XII intact bilaterally Sensorium / Orientation: alert Motor Exam: strength 5/5 throughout Psych mental status grossly normal Mood & Affect: Negative for depressed or tearful Skin no rashes or lesions noted and no wounds MDM MDM MDM Narrative Medical decision making narrative: Differential diagnosis includes but not limited to fracture dislocation neurovascular injury ligamentous injury tendon injury Ice was applied. My independent interpretation of the plain films of the right ankle is no acute fracture. Soft tissue swelling noted. Patient was placed in Axel wrap given crutches. Conservative treatment. Will have her follow-up with orthopedics in 2 to 3 weeks if not improved. History & Record Review Discussion w/independent historian: Patient and Significant other Discharge Plan Triage Chief Complaint: Lower Extremity Injury ED Provider: Clay Snow Dx/Rx/DC Orders Clinical Impression: Right ankle sprain, Right ankle pain Instructions: ED Ankle Sprain (Adult) Prescriptions: No Action modafinil 200 mg tablet PO Xywav 0.5 gram/mL solution 1.8 g PO BID Rx Instructions: administer the first dose at bedtime and the second dose 2.5-4 hours later naproxen sodium [Aleve] 220 mg tablet 220 mg PO BID PRN acetaminophen [Tylenol] 325 mg tablet 325 mg PO ONCE PRN pregabalin 50 mg capsule 50 mg PO BID Primary Care Provider: Ruddy Vaca Referrals: Ruddy Vaca MD [Primary Care Provider] - Thony La MD [Med Staff - Active Staff] - 1-2 Weeks Print Language: Yakut Disposition Disposition: Home, Self Care
[2024-03-12 00:57] VITALS: BP 132/60; PULSE 85; RESP 16; TEMP 36.4; O2SAT 98
== END 2024-03-12 00:58 | disposition home or self-care (01) ==
LOC: ED 03-12 00:48
PROVIDERS: Emergency Provider Emergency Medicine; PCP Family Medicine; Visit Provider Emergency Medicine
DX: S93.401A Sprain of unspecified ligament of right ankle, initial encounter (principal); X50.1XXA Overexertion from prolonged static or awkward postures, initial encounter; Y93.67 Activity, basketball
CPT/HCPCS: 73610; 99283

== ENCOUNTER → 2024-04-01 | Outpatient (CLI) | payer BC, SELFPAY ==
--- NOTE | 2024-04-01 19:01 | CT_ITS ---
EXAM: CT RIGHT LOWER EXTREMITY WITHOUT INTRAVENOUS CONTRAST CLINICAL INDICATION: PAIN TECHNIQUE: Helically acquired images were obtained of the right lower extremity without intravenous contrast. 2-D reformats were performed by the technologist. CTDIvol = ( 15.35 ) mGy, DLP = ( 399.82 ) mGycm This CT exam was performed using one or more of the following dose reduction techniques: automated exposure control, adjustment of the mA and/or kV according to patient size, and/or use of iterative reconstruction technique. COMPARISON: March 11, 2024 FINDINGS: BONES/JOINTS: Identified are small osseous fragments along the dorsal aspect of the talar neck. These do not appear to be acute. Ankle mortise is intact. Very large amount of soft swelling along the lateral malleolus. Ligaments are not well seen. Ankle tendons are grossly intact. Question thickening of the anterior talofibular ligament which is not well-demonstrated on this study. This may represent a sprain injury. No subluxation. Normal alignment. Preservation of the joint space. No sclerotic or destructive changes. SOFT TISSUES: Muscles are normal. No radiopaque foreign bodies. OTHER FINDINGS: No organized fluid collections. CT/Extremity Lower without Contra IMPRESSION: 1. Subcutaneous edema along the anterolateral/lateral malleolus but no acute or healing fracture or other malalignment. 2. Small calcifications along the anterior talar neck do not appear to be acute. Electronically Signed: Gabino Loaiza MD at 3:21 EDT ,
== END | disposition home or self-care (01) ==
LOC: CT 18:57
PROVIDERS: PCP Family Medicine; Visit Provider Physician Assistant
DX: S93.491A Sprain of other ligament of right ankle, initial encounter (principal)
CPT/HCPCS: 73700

== ENCOUNTER 2024-05-04 15:30 | Outpatient (RCR) | payer BC, SELFPAY ==
--- NOTE | 2024-03-31 15:05 | HP.PTEVAL_ITS ---
Patient's Visit Information Visit Information Visit Information: ANGELIQUE SWANN is a 33 year old M referred to Physical Therapy by Dr. Ruddy Vaca MD with a diagnosis of RIGHT ANKLE SPRAIN GRADE 3. Date of Evaluation: 03/31/24 Physical Therapist: Bubba Mchugh PT, Cert MDT, OCS Visit Plan Frequency: 2x /Week Duration: 6 Weeks Plan: s/p ANKLE SPRAIN GRADE 3 Subjective Subjective: This 33 y/o male presents to physical therapy with grade 3 ankle sprain . Patient twisted ankle inversion 03/11 playing basketball . Patient had immediate pain . Patient went to ER [facility] had x-rays and crtutches and referred to [facility] and thought possible avulsion MRI. Patient provided CAM boot and recommend CTSCAN R/O avulsion fx. Patient located lateral ankle and dorsal foot tbia ,medial ankle and bruising in calf. Pain described as ache. Patient has no medication over counter medication. Patient denies paresthesia/tingling. Edema gradually getting better. Patient has limitation with all functional activities and walking. Patient condition affects QOL/function. Patient goals to decrease pain and return to prior level of function. 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 Right Ankle: Pain Intensity (Out of 10): 6 Pain Intensity Range: 10 Objective Objective: POSTURE: normal arch PAPATION: anterior tibiofibular ligament ,syndesmosis ,calcaneofibular ligament ,,anterior talofibular ligament EDEMA: trimalleolar 62.5 CM GAIT: ambulates with CAM boot AROM: dorsiflexion 5 degrees from 0 ,plantar flexion 60 degrees ,invesion 20 degrees ,eversion 0 degrees MMT: (peak force) posterior tibialis 8.2,pernoneus 7.1 ,anterior tibialis 23 .1 ,21.9 G-A PROPRIOCEPTION: POOR + high ankle sprain + inversion stress test + talar tilt + anterior drawer Balance/Special Test Scores Lower Extremity Functional Score: 35 Goals Goal 1:: I with HEP for ankle Goal Time Frame: 4-6 Weeks Goal 2:: Patient to normalize gait Goal Time Frame: 4-6 Weeks Goal 3:: Patient to improve AROM WNL right compared to left to improve gait Goal Time Frame: 4-6 Weeks Goal 4:: Patient to improve peak force ankle stabilizers by 10-15# to strength to improve function. Goal Time Frame: 4-6 Weeks Goal 5:: Patient to improve LFES score by 10-15 points to improve function Goal Time Frame: 4-6 Weeks Goal 6:: Patient demonstrate 75% to improve function and gait Goal Time Frame: 4-6 Weeks Rehabilitation Potential Physical Therapy Diagnosis: Patient appears to have grade 3 ankle sprain and high ankle sprain with pain ,decrease ROM ,ankle weakness ,increase edema poor proprioception and decrease gait thus benefit From skilled PT Rehabilitation Potential: Good Anticipated Interventions Patient/Client Instruction: Educate patient on: Condition and Plan of Care For the Purpose of:: To decrease pain, To increase ROM, To improve muscle performance and motor function, To improve ability to perform ADL's, To increase tolerance to activity/condition/position, To improve ability of physical actions for home/community/work/leisure, To decrease soft tissue restriction, To improve endurance, To improve balance, To improve safety with gait and To reduce risk of recurrence Therapeutic Exercise to Include: Strength training, Endurance training, Balance training, Flexibilty training, Gait and locomotor training, Passive ROM and Active ROM Comment: ANKLE STABILZERS For the Purpose of:: To decrease pain, To decrease swelling/inflammation, To increase ROM, To improve nutrient delivery to tissue, To increase oxygenation perfusion, To improve muscle performance and motor function, To increase tolerance to activity/condition/position, To improve ability of physical actions for home/community/work/leisure, To improve gait and locomotor functions, To decrease soft tissue restriction, To increase flexibility/ROM, To improve endurance, To improve balance and To reduce risk of recurrence TENS: Yes IF ES: Yes Cryotherapy (ice pack, ice massage): Yes Thermo therapy (hot pack): Yes Ultrasound (thermal/non thermal): Yes Vasopneumatic device: Yes For the Purpose of:: To decrease pain, To increase ROM, To improve nutrient delivery to tissue, To increase oxygenation perfusion, To improve health of tissue, To decrease soft tissue restriction and To increase flexibility/ROM Text: Thank you for the opportunity to evaluate your patient. For Medicare and Medicare HMO plans, please review the plan of care and approve it. It will need to be FAXED BACK to us at [phone] for Medicare purposes. For Medicare only, by signing this I certify the plan of care. Please let me know if there are questions or concerns regarding this plan of care. Physician Signature: Date:
--- NOTE | 2024-05-04 15:59 | HP.PTEVAL_ITS ---
Patient's Visit Information Visit Information Visit Information: ANGELIQUE SWANN is a 33 year old M referred to Physical Therapy by Dr. Ruddy Vaca MD with a diagnosis of RIGHT ANKLE SPRAIN GRADE 3. Date of Evaluation: 03/31/24 Physical Therapist: Bubba Mchugh, PT, Cert MDT, OCS Visit Plan Frequency: 2x /Week Duration: 6 Weeks Plan: ANKLE SPRAIN GRADE 3. AMBULATES WITH CAM BOOT OKAY TO REMOVE WITH EX'S. PT INTERVENTIONS FLEXABILITY G-S ,ROM/ISOMETRICS ANKLE ,PROGRESS STRENGTHENING EX'S ANKLE ,WB ,PROPRIOCEPTION AND MODALTIES PRN Subjective Subjective: This 33 y/o male presents to physical therapy with grade 3 ankle sprain . Patient twisted ankle inversion 03/11 playing basketball . Patient had immediate pain . Patient went to ER [facility] had x-rays and crtutches and referred to [facility] and thought possible avulsion MRI. Patient provided CAM boot and recommend CTSCAN R/O avulsion fx. Patient located lateral ankle and dorsal foot tbia ,medial ankle and bruising in calf. Pain described as ache. Patient has no medication over counter medication. Patient denies paresthesia/tingling. Edema gradually getting better. Patient has limitation with all functional activities and walking. Patient condition affects QOL/function. Patient goals to decrease pain and return to prior level of function. SOCAIL: VOCATION: [employer] Pain Right Ankle: Pain Intensity (Out of 10): 3 Pain Intensity Range: 10 Objective Objective: POSTURE: normal arch PAPATION: anterior tibiofibular ligament ,syndesmosis ,calcaneofibular ligament ,,anterior talofibular ligament EDEMA: trimalleolar 62.5 CM GAIT: ambulates with CAM boot AROM: dorsiflexion 5 degrees from 0 ,plantar flexion 60 degrees ,invesion 20 degrees ,eversion 0 degrees MMT: (peak force) posterior tibialis 8.2,pernoneus 7.1 ,anterior tibialis 23 .1 ,21.9 G-A PROPRIOCEPTION: POOR + high ankle sprain + inversion stress test + talar tilt + anterior drawer Balance/Special Test Scores Lower Extremity Functional Score: 35 Goals Goal 1:: I with HEP for ankle Goal Time Frame: 4-6 Weeks Goal 2:: Patient to normalize gait Goal Time Frame: 4-6 Weeks Goal 3:: Patient to improve AROM WNL right compared to left to improve gait Goal Time Frame: 4-6 Weeks Goal 4:: Patient to improve peak force ankle stabilizers by 10-15# to strength to improve function. Goal Time Frame: 4-6 Weeks Goal 5:: Patient to improve LFES score by 10-15 points to improve function Goal Time Frame: 4-6 Weeks Goal 6:: Patient demonstrate 75% to improve function and gait Goal Time Frame: 4-6 Weeks Rehabilitation Potential Physical Therapy Diagnosis: Patient appears to have grade 3 ankle sprain and high ankle sprain with pain ,decrease ROM ,ankle weakness ,increase edema poor proprioception and decrease gait thus benefit From skilled PT Rehabilitation Potential: Good Anticipated Interventions Patient/Client Instruction: Educate patient on: Condition and Plan of Care For the Purpose of:: To decrease pain, To increase ROM, To improve muscle performance and motor function, To improve ability to perform ADL's, To increase tolerance to activity/condition/position, To improve ability of physical actions for home/community/work/leisure, To decrease soft tissue restriction, To improve endurance, To improve balance, To improve safety with gait and To reduce risk of recurrence Therapeutic Exercise to Include: Strength training, Endurance training, Balance training, Flexibilty training, Gait and locomotor training, Passive ROM and Active ROM Comment: ANKLE STABILZERS For the Purpose of:: To decrease pain, To decrease swelling/inflammation, To increase ROM, To improve nutrient delivery to tissue, To increase oxygenation perfusion, To improve muscle performance and motor function, To increase tolerance to activity/condition/position, To improve ability of physical actions for home/community/work/leisure, To improve gait and locomotor functions, To decrease soft tissue restriction, To increase flexibility/ROM, To improve endura nce, To improve balance and To reduce risk of recurrence TENS: Yes IF ES: Yes Cryotherapy (ice pack, ice massage): Yes Thermo therapy (hot pack): Yes Ultrasound (thermal/non thermal): Yes Vasopneumatic device: Yes For the Purpose of:: To decrease pain, To increase ROM, To improve nutrient delivery to tissue, To increase oxygenation perfusion, To improve health of tissue, To decrease soft tissue restriction and To increase flexibility/ROM Text: Thank you for the opportunity to evaluate your patient. For Medicare and Medicare HMO plans, please review the plan of care and approve it. It will need to be FAXED BACK to us at [phone] for Medicare purposes. For Medicare only, by signing this I certify the plan of care. Please let me know if there are questions or concerns regarding this plan of care. Physician Signature: Date:
--- NOTE | 2024-06-26 10:57 | HP.PTDCSUM ---
Discharge Summary D/C summary: It has been my pleasure to treat ANGELIQUE SWANN referred by Dr. Ruddy Vaca MD, with the diagnosis of RIGHT ANKLE SPRAIN GRADE 3 for a total of 8 visit(s). Discharge Date: Please see the following information for a summary of their discharge status. Subjective Subjective: Doing better overall /Sees Saturday Some soreness Pain Right Ankle: Pain Intensity (Out of 10): 0 Overall Improvement % Improvement: 85 Objective Objective/Function: Objective: POSTURE: normal arch PAPATION: medial posterior ligamne EDEMA: absent GAIT: reciprocal pattern AROM: dorsiflexion5,plantar flexion 65 degrees ,invesion 35 degrees ,eversion 5 degrees MMT: (peak force) posterior tibialis 22.8,pernoneus 23.2 ,anterior tibialis 50.2 ,50.1 G-A PROPRIOCEPTION: WFL Goals Goal 1:: I with HEP for ankle Goal 2:: Patient to normalize gait Goal 3:: Patient to improve AROM WNL right compared to left to improve gait Goal 4:: Patient to improve peak force ankle stabilizers by 10-15# to strength to improve function. Goal 5:: Patient to improve LFES score by 10-15 points to improve function Goal 6:: Patient demonstrate 75% to improve function and gait Plan Plan: RTD PT INTERVENTIONS FLEXABILITY G-S ,ROM/ISOMETRICS ANKLE ,PROGRESS STRENGTHENING EX'S ANKLE ,WB ,PROPRIOCEPTION AND MODALTIES PRN D/C Information d/c sentence: If there are questions or concerns regarding this patient's physical therapy, please feel free to call me at [phone]. Thank you for the referral of this patient. Sincerely, Bubba Mchugh, PT, Cert MDT, OCS Balance/Gait/Functional tests Balance/Special Test Scores Lower Extremity Functional Score: 35 Improvement % Improvement: 85
== END 2024-05-04 19:00 | disposition home or self-care (01) ==
LOC: PT 15:30
PROVIDERS: PCP Family Medicine; Referring Provider Family Medicine; Visit Provider Family Medicine
DX: S93.401D Sprain of unspecified ligament of right ankle, subsequent encounter (principal)
CPT/HCPCS: 97110; 97161; 97530